=== PATIENT | male | born 1970 | race Caucasian/White ===

== ENCOUNTER 2020-08-07 15:10 | Emergency (ER) | payer OTHER, BC ==
[~2020-08-07] VITALS: Ht 185.4 cm; Wt 141.0 kg
[2020-08-07 15:13] VITALS: BP 161/67
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
[2020-08-07] MEDS ORDERED: HYDR-2155 PO (16:31)
== END 2020-08-07 16:51 | disposition home or self-care (01) ==
LOC: ER 15:10
DX: S62.512A Displaced fracture of proximal phalanx of left thumb, initial encounter for closed fracture (principal); V98.8XXA Other specified transport accidents, initial encounter; Y93.89 Activity, other specified; Y92.89 Other specified places as the place of occurrence of the external cause; Y99.8 Other external cause status
CPT/HCPCS: 29125; 73130; 99283